=== PATIENT | male | born 1980 | race Caucasian/White ===

== ENCOUNTER 2023-03-16 10:34 | Emergency (ER) | payer BC, SELFPAY ==
--- NOTE | 2023-03-16 10:42 | EXP.UTC ---
Discharge Plan Disposition Patient Disposition: Home, Self-Care Condition: Good Prescriptions Prescriptions: New azithromycin [Zithromax] 250 mg tablet 250 mg PO UD DOSE PK Qty: 6 0RF Rx Instructions: Take two (2) tablets today, then one (1) tablet days #2 thru #5 methylprednisolone 4 mg Tablets,Dose Pack 4 mg PO DIRECTED Qty: 21 0RF nygygpmulcnuzha-xithnfutf-WH [Bromfed DM] 2-30-10 mg/5 mL Syrup 5 ml PO Q6H PRN (Reason: Cough) Qty: 240 0RF No Action azithromycin 250 MG tablet 250 mg PO UD DOSE PK Qty: 6 0RF Rx Instructions: Take two (2) tablets today, then one (1) tablet days #2 thru #5 Referrals Follow up/Referrals: Belen Kelley APRN [Primary Care Provider] - See instructions Activity Restrictions/Add. Instructions Additional Instructions/Restrictions: Drink plenty of fluids. Take tylenol or ibuprofen for pain or fever. Take the medications as directed. Follow up with your regular doctor. GO TO THE ER FOR ANY WORSENING SYMPTOMS Clinical Impressions Clinical Impression: Bronchitis Stand Alone Forms Stand Alone Forms: Work/School Release Instructions Patient Instructions: Acute Bronchitis, DI for Acute Bronchitis Discharge ED Provider: Gurmeet Quispe [facility] General Stated complaint: congested,cough Time Seen by Provider: 03/16/23 10:42 History of Present Illness Provider Complaint: He states that for the past 3 days he has had worsening chest congestion. He denies fever, but he has had chills. Related Data Previous Rx's Medication Instructions Recorded azithromycin 250 mg tablet 250 mg PO UD DOSE PK #6 tabs 03/07/19 azithromycin 250 mg tablet 250 mg PO UD DOSE PK #6 tabs 03/16/23 (Zithromax) vrdojdqhkrctzuf-ouzidksnxmyeluj-YE 5 ml PO Q6H PRN Cough #240 mL 03/16/23 2 mg-30 mg-10 mg/5 mL oral syrup (Bromfed DM) methylprednisolone 4 mg tablets in 4 mg PO DIRECTED #21 tabs 03/16/23 a dose pack Allergies Allergy/AdvReac Type Severity Reaction Status Date / Time No Known Allergies Allergy Unverified 11/03/17 14:16 [facility] Disclaimer: The information contained in this section may have been updated after the patient was seen, as this information can be updated by other users. Social History Smoking Status: Never smoker alcohol intake: never current occupational status: other Travel in the last 8 weeks: None ROS Obtained: Yes All systems reviewed & no additional complaints except as documented Constitutional Constitutional: Reports poor appetite Eyes Eyes: Reports system reviewed and no additional complaints, except as documented ENT Ears, Nose, Mouth, and Throat: Reports as per HPI Cardiovascular Cardiovascular: Reports system reviewed and no additional complaints, except as documented and Denies chest pain Respiratory Respiratory: Denies shortness of breath, Reports chest congestion, Reports cough, Denies stridor and Denies wheezing Gastrointestinal Gastrointestingal: Reports system reviewed and no additional complaints, except as documented; Denies abdominal pain, diarrhea or vomiting Musculoskeletal Musculoskeletal: Reports system reviewed and no additional complaints, except as documented and Denies arthralgias Integumentary/Breasts Skin/Breast: Reports system reviewed and no additional complaints, except as documented and Denies rash Neurologic Neurologic: Denies paresthesias Allergic/Immunologic Allergic/Immunologic: Denies wheezing Physical Exam General General appearance: alert and in no apparent distress Head Head exam: atraumatic, normocephalic and normal inspection Eye Eye exam: Present normal appearance, PERRL and EOMI ENT ENT exam: Present normal exam, normal oropharynx, mucous membranes moist, TM's normal bilaterally and normal external ear exam Neck Neck exam: Present normal inspection, full ROM and trachea midline; Absent meningismus or lymphad
[2023-03-16 10:51] VITALS: BP 139/96; PULSE 57; RESP 16; TEMP 36.6; O2SAT 100; BMI 27.8
[2023-03-16 11:09] VITALS: BP 139/96; PULSE 57; RESP 16; TEMP 36.7; O2SAT 100
== END 2023-03-16 11:10 | disposition home or self-care (01) ==
PROVIDERS: Emergency Provider Nurse Practitioner Family; PCP Nurse Practitioner Family
DX: J20.9 Acute bronchitis, unspecified (principal)
CPT/HCPCS: 99204; 99212; G0463

== ENCOUNTER 2023-08-13 08:56 | Emergency (ER) | payer BC, SELFPAY ==
[2023-08-13 09:05] VITALS: BP 146/97; PULSE 72; RESP 18; TEMP 36.6; O2SAT 99; BMI 27.8
--- NOTE | 2023-08-13 09:17 | EXP.UTC ---
Discharge Plan Disposition Patient Disposition: Home, Self-Care Condition: Good Prescriptions Prescriptions: New benzonatate [benzonatate] 100 mg capsule 100 mg PO TIDP PRN (Reason: Cough) Qty: 30 0RF pseudoephedrine HCl 30 mg tablet 30 mg PO Q6HP PRN (Reason: Congestion) Qty: 30 0RF guaifenesin [Mucinex] 600 mg tablet extended release 12hr 600 - 1,200 mg PO BIDP PRN (Reason: Congestion) Qty: 30 0RF Referrals Follow up/Referrals: Provider,Referral, MD [Primary Care Provider] - See instructions Activity Restrictions/Add. Instructions Additional Instructions/Restrictions: Drink plenty of fluids. Take tylenol for pain or fever. I prescribed psuedophed in case you start having worseing sinus congestion. The mucinex and the benzonatate are for cough. Return if you begin to have difficulty breathing. Follow up with your regular doctor. GO TO THE ER FOR ANY WORSENING SYMPTOMS Clinical Impressions Clinical Impression: Allergic rhinitis Stand Alone Forms Stand Alone Forms: Work/School Release Instructions Patient Instructions: Allergic Rhinitis, DI for Allergic Rhinitis Discharge ED Provider: Gurmeet Quispe [facility] General Stated complaint: cold sore throat Time Seen by Provider: 08/13/23 09:17 History of Present Illness Provider Complaint: He states that for the past 1 day he has had sinus congestion, scratchy sore throat and a dry cough. He denies any fever/chills/body aches. He denies any known exposure to covid-19. One of his coworkers did have strep throat last week. Related Data Previous Rx's Medication Instructions Recorded benzonatate 100 mg capsule 100 mg PO TIDP PRN Cough #30 caps 08/13/23 guaifenesin 600 mg tablet, 600 - 1,200 mg PO BIDP PRN 08/13/23 extended release 12 hr (Mucinex) Congestion #30 tabs pseudoephedrine HCl 30 mg tablet 30 mg PO Q6HP PRN Congestion #30 08/13/23 tabs Allergies Allergy/AdvReac Type Severity Reaction Status Date / Time No Known Allergies Allergy Verified 08/13/23 09:20 [facility] Disclaimer: The information contained in this section may have been updated after the patient was seen, as this information can be updated by other users. Social History (System 03/16/23 @ 15:15 by Kamari Dean) Smoking Status: Never smoker alcohol intake: never current occupational status: other Travel in the last 8 weeks: None ROS Obtained: Yes All systems reviewed & no additional complaints except as documented Constitutional Constitutional: Reports as per HPI, Reports anorexia, Denies body ache, Denies chills and Denies fever(s) Eyes Eyes: Denies eye discharge ENT Ears, Nose, Mouth, and Throat: Reports as per HPI Cardiovascular Cardiovascular: Denies chest pain Respiratory Respiratory: Denies chest congestion and Reports cough Gastrointestinal Gastrointestingal: Reports nausea; Denies abdominal pain, constipation, cramping, diarrhea or vomiting Musculoskeletal Musculoskeletal: Denies arthralgias Integumentary/Breasts Skin/Breast: Denies rash Neurologic Neurologic: Denies paresthesias Physical Exam General General appearance: alert and in no apparent distress Head Head exam: atraumatic, normocephalic and normal inspection Eye Eye exam: Present normal appearance, PERRL and EOMI ENT ENT exam: Present normal exam, normal oropharynx, mucous membranes moist, TM's normal bilaterally and normal external ear exam Neck Neck exam: Present normal inspection, full ROM and trachea midline; Absent meningismus or lymphadenopathy Chest Chest inspection: Present normal inspection and symmetric chest wall rise; Absent tenderness Respiratory Respiratory exam: Present normal lung sounds bilaterally; Absent respiratory distress Cardiovascular Cardiovascular exam: Present regular rate and normal rhythm; Absent JVD Abdominal Exam Abdominal exam: Present soft and normal bowel sounds; Absent distention, tenderness or guarding Extremitie
[2023-08-13 09:25] LABS: UTC Strep Screen (Rapid) Negative (Negative)
[2023-08-13 09:45] VITALS: BP 146/97; PULSE 72; RESP 18; TEMP 36.6; O2SAT 99
== END 2023-08-13 09:39 | disposition home or self-care (01) ==
PROVIDERS: Emergency Provider Nurse Practitioner Family
DX: J30.9 Allergic rhinitis, unspecified (principal)
CPT/HCPCS: 87880; 99212; 99214; G0463

== ENCOUNTER 2025-06-06 12:49 | Outpatient (CLI) | payer BC, SELFPAY ==
--- NOTE | 2025-06-06 12:51 | XR_ITS ---
FINAL REPORT CLINICAL HISTORY: R ankle injury COMPARISON: None FINDINGS: Three views of the right foot show no evidence of acute displaced fracture or dislocation of the visualized bony architecture. The joint spaces appear normal. IMPRESSION: Unremarkable exam. Reviewed, Interpreted and Dictated by Chetna Casanova MD Transcribed by Sarai Roman Authenticated and [facility]
--- NOTE | 2025-06-06 12:51 | XR_ITS ---
FINAL REPORT CLINICAL HISTORY: R ankle injury COMPARISON: None FINDINGS: Three views of the right ankle show no evidence of acute displaced fracture or dislocation of the visualized bony architecture. The joint spaces appear normal. IMPRESSION: Unremarkable exam. Reviewed, Interpreted and Dictated by Chetna Casanova MD Transcribed by Sarai Roman Authenticated and [facility]
--- OUTSIDE RECORDS SUMMARY | 2025-06-06 12:53 | XMS_ITS | Clinical Summary ---
[facility] Address [address] [place] [address] Care Team Providers Care Job Captain Name Role Phone Provider, No Known Primary Care Provider Unavail able Social History Tobacco Use Types Packs/Day Years Used Date Smoking Tobacco: Never Assessed Abuse Screen Answer Date Recorded Unsafe at Home or Work/School Not on file Feels Threatened by Someone? Not on file 09/2023 Does Anyone Keep You from Co ntacting Others or Doint Things Outside the Home? Not on file 08/26/2023 Physical Sign of Abuse Present Not on file 1 Housing Stability Answer Date Recorded Current Living Arrangements Not on file 08/16 Potentially Unsafe Housing Conditions Not on maya e 08/26/2023 Family and Community Support Answer Ariel e Recorded Help with Day-to-Day Activities Not on file 08/26/2023 Lonely or Isolated Not on file 08/26/2023 Employment Answer Date Recorded Do you want help finding or keeping work or a mehran b? Not on file 08/26/2023 Disabilities Answer Date Recorded Concentrating, Remembering, or Making Decisions Difficulty Not on file 08/26/2023 Doing Errands Independently Difficulty Not on fi le 08/26/2023 Education Answer Date Recorded Help with school or training? Not on file Preferred Language Not on file 08/26/2023 Sex and Gender Information Value Date Recorded Sex Assigned at Not on file Legal Sex Male 10:08 AM EDT Gender Identity Not on file Sexual Orientation Not on file Plan of Treatment Health Maintenance Due Date Last Done Comments ANNUAL PHYSICAL 1979 HEPATITIS C SCREENING 1979 TDAP/TD VACCINES (1 - Tdap) 1998 COLOGUARD 2024 COLON CANCER SCREENING 5 YEA R SIGMOIDOSCOPY 2024 COLONOSCOPY 2024 COL[address]ECTAL CANCER SCREENING 2024 CT COLONOGRAPHY 2024 FECAL OCCULT BLOOD TEST 2024 FIT Testing (1 year) 2024 COVID-19 Vaccine ( - 2023-2 5 season) 2024 INFLUENZA VACCINE 08/16/2025 Pneumococcal Vaccine 0-49 Aged Out No longer eligible based on patient's age to complete this topic Care Teams Job Captain Relationship Specialty Start Date End Date Provider, [place] [address] PCP - General 09/03/16
== END 2025-06-06 23:59 | disposition home or self-care (01) ==
LOC: RAD 12:49
PROVIDERS: Visit Provider Student in an Organized Health Care Education/Training Program
DX: S99.911A Unspecified injury of right ankle, initial encounter (principal); M25.571 Pain in right ankle and joints of right foot; X58.XXXA Exposure to other specified factors, initial encounter
CPT/HCPCS: 73610; 73630